=== PATIENT | male | born 1980 | race Caucasian/White ===

== ENCOUNTER 2016-08-14 21:11 | Emergency (ER) | payer BC ==
[~2016-08-14 21:11] MED LIST: CORTISPORIN OTI10 M1 OT; NORCO 5-325 TA1 EACH PO
[2016-08-14] MEDS ORDERED: NO HOME MEDICATION XX (21:25)
[2016-08-14] MEDS ORDERED: NORCO 5-325 TA1 EACH PO (23:02)
== END 2016-08-14 23:06 ==
LOC: EDMED 21:11
DX: S40.021A Contusion of right upper arm, initial encounter (principal); V87.8XXA Person injured in other specified noncollision transport accidents involving motor vehicle (traffic), initial encounter